=== PATIENT | male | born 1970 | race African-American/Black ===

== ENCOUNTER 2017-03-01 06:40 | Emergency (ER) | payer SELFPAY ==
[~2017-03-01] VITALS: Ht 180.3 cm; Wt 96.5 kg
[2017-03-01 10:17] VITALS: BP 144/102
== END 2017-03-01 11:00 | disposition home or self-care (01) ==
LOC: ER 07:14
DX: H00.024 Hordeolum internum left upper eyelid (principal)
CPT/HCPCS: 99283; Z7610